=== PATIENT | male | born 1965 | race Caucasian/White ===

== ENCOUNTER → 2016-10-29 | Emergency (ER) | payer BC, OTHER ==
[~2016-10-29] VITALS: Ht 180.3 cm; Wt 81.6 kg
[~2016-10-29] MED LIST: /TAMS4CA OR; ADACEL/BOOSTRIX VACCINE (DIPHTH/PERTUSS/ACELL/TETANUS)0.5ML SYR (90715) IM ONE; AVOD0.5C PO; BACI500O8 TOP; BACITRACIN OINT 30GM TOP ONE; HYOS0.378 OR; OXYCODONE/APAP 5MG/325MG(BULK FOR ED) 1 TABLET PO ONE; PERC5TAB6 PO; PERCOCET 5MG/325MG TAB PO ONE; POLY33502 PO; POLYSPORIN TOPICAL OINTMENT 15GM As Ordered ONE; PRIL40CA OR; PROSTATE MEDS PO
[2016-10-29 20:41] VITALS: BP 172/107
== END | disposition home or self-care (01) ==
LOC: M ED 23:20
DX: T25.221A Burn of second degree of right foot, initial encounter (principal); T23.202A Burn of second degree of left hand, unspecified site, initial encounter; T23.291A Burn of second degree of multiple sites of right wrist and hand, initial encounter; T31.0 Burns involving less than 10% of body surface; X19.XXXA Contact with other heat and hot substances, initial encounter; Y92.9 Unspecified place or not applicable; Y93.89 Activity, other specified; Y99.9 Unspecified external cause status

== ENCOUNTER → 2017-01-13 | Outpatient (CLI) | payer BC, OTHER ==
[~2017-01-13] MED LIST changes: -ADACEL/BOOSTRIX VACCINE (DIPHTH/PERTUSS/ACELL/TETANUS)0.5ML SYR (90715) IM ONE; -BACITRACIN OINT 30GM TOP ONE; -OXYCODONE/APAP 5MG/325MG(BULK FOR ED) 1 TABLET PO ONE; +PERC5TAB12 PO; -PERC5TAB6 PO; -PERCOCET 5MG/325MG TAB PO ONE; -POLYSPORIN TOPICAL OINTMENT 15GM As Ordered ONE
[2017-01-13 21:35] LABS: BASO % 0.9 % (0.0-1.0); EOS # 0.2 K/mm3 (0.0-0.50); LYMPH # 1.8 K/mm3 (1.5-4.5); LYMPH % 31.1 % (24.0-44.0); MEAN CORPUSCULAR HGB CONC 33.4 g/dl (32.0-36.5); MEAN CORPUSCULAR VOLUME 92.8 fl (80.0-96.0); MONO # 0.4 K/mm3 (0.0-0.8); MONO % 6.6 % (0.0-5.0); NEUTROPHILS % 56.5 % (36.0-66.0); RED CELL DISTRIBUTION WIDTH 13.4 % (11.5-14.5); WHITE BLOOD COUNT 5.3 K/mm3 (4.0-10.0)
[2017-01-13 22:17] LABS: ALBUMIN 3.9 GM/DL (3.2-5.2); ALKALINE PHOSPHATASE 68 U/L (45-117); ALT/SGPT 22 U/L (12-78); ANION GAP 7 MEQ/L (8-16); AST/SGOT 11 U/L (15-37); BILIRUBIN,TOTAL 0.3 MG/DL (0.2-1.0); BLOOD UREA NITROGEN 19 MG/DL (7-18); CALCIUM LEVEL 8.1 MG/DL (8.5-10.1); CARBON DIOXIDE LEVEL 29 MEQ/L (21-32); CHLORIDE LEVEL 107 MEQ/L (98-107); CREATININE FOR GFR 0.95 MG/DL (0.70-1.30); GLOMERULAR FILTRATION RATE > 60.0 (>56); GLUCOSE, FASTING 128 MG/DL (70-105); POTASSIUM SERUM 4.4 MEQ/L (3.5-5.1); SODIUM LEVEL 143 MEQ/L (136-145); TOTAL PROTEIN 6.9 GM/DL (6.4-8.2)
== END ==
LOC: M LRY 10:36
PROVIDERS: ATTEND Family Medicine
DX: R10.9 Unspecified abdominal pain (principal); M46.96 Unspecified inflammatory spondylopathy, lumbar region; M16.10 Unilateral primary osteoarthritis, unspecified hip; N39.0 Urinary tract infection, site not specified

== ENCOUNTER → 2017-10-30 | Outpatient (REF) | payer OTHER ==
[2017-10-30 11:46] LABS: BASO # 0.1 10^3/uL (0.0-0.2); BASO % 0.9 % (0.0-1.0); EOS # 0.2 10^3/uL (0.0-0.50); EOS % 3.7 % (0.0-3.0); HEMATOCRIT 44.2 % (42.0-52.0); HEMOGLOBIN 15.1 g/dl (13.5-17.5); IMMATURE GRANULOCYTE % 0.2 % (0-3.0); LYMPH # 2.6 10^3/uL (1.5-4.5); LYMPH % 44.7 % (24.0-44.0); MEAN CORPUSCULAR HEMOGLOBIN 30.4 pg (27.0-33.0); MEAN CORPUSCULAR HGB CONC 34.2 g/dl (32.0-36.5); MEAN CORPUSCULAR VOLUME 88.9 fl (80.0-96.0); MONO # 0.6 10^3/uL (0.0-0.8); MONO % 9.8 % (0.0-5.0); NEUTROPHILS # 2.3 10^3/uL (1.8-7.7); NEUTROPHILS % 40.7 % (36.0-66.0); PLATELET COUNT, AUTOMATED 241 10^3/uL (150-450); RED BLOOD COUNT 4.97 10^6/uL (4.30-6.10); WHITE BLOOD COUNT 5.7 10^3/uL (4.0-10.0)
[2017-10-30 13:01] LABS: ALBUMIN 4.1 GM/DL (3.2-5.2); ALBUMIN/GLOBULIN RATIO 1.17 (1.00-1.93); ALKALINE PHOSPHATASE 69 U/L (45-117); ALT/SGPT 15 U/L (12-78); ANION GAP 6 MEQ/L (8-16); AST/SGOT 11 U/L (7-37); BILIRUBIN,TOTAL 0.8 MG/DL (0.2-1.0); BLOOD UREA NITROGEN 15 MG/DL (7-18); CARBON DIOXIDE LEVEL 30 MEQ/L (21-32); CHLORIDE LEVEL 105 MEQ/L (98-107); CHOLESTEROL LEVEL 224 MG/DL (<200); CHOLESTEROL RISK RATIO 5.463 (<5); CREATININE FOR GFR 0.95 MG/DL (0.70-1.30); FREE T4 1.19 NG/DL (0.76-1.46); GLOMERULAR FILTRATION RATE > 60.0 (>56); GLUCOSE, FASTING 97 MG/DL (70-100); HDL CHOLESTEROL 41 MG/DL (>40); LDL CHOLESTEROL 164.4 MG/DL (<100); NON-HDL-C 183 MG/DL; POTASSIUM SERUM 4.8 MEQ/L (3.5-5.1); PSA SCREENING 1.86 NG/ML (< 4.0); SODIUM LEVEL 141 MEQ/L (136-145); THYROID STIMULATING HORMONE 0.872 uIU/ML (0.358-3.740); TOTAL PROTEIN 7.6 GM/DL (6.4-8.2); TRIGLYCERIDES LEVEL 93 MG/DL (<150)
== END ==
LOC: M SFHCPLAZ 09:40 → M LRY 09:53
DX: R55 Syncope and collapse (principal); Z13.220 Encounter for screening for lipoid disorders; Z12.5 Encounter for screening for malignant neoplasm of prostate; F32.9 Major depressive disorder, single episode, unspecified

== ENCOUNTER → 2017-10-30 | Outpatient (CLI) | payer BC, OTHER | LOC: M LRY 09:49 | DX: M54.2 Cervicalgia (principal) ==

== ENCOUNTER → 2017-12-31 | Outpatient (REF) | payer OTHER ==
[2017-12-31 11:59] LABS: BASO % 0.5 % (0.0-1.0); EOS # 0.1 10^3/uL (0.0-0.50); EOS % 1.3 % (0.0-3.0); HEMATOCRIT 46.3 % (42.0-52.0); HEMOGLOBIN 15.7 g/dl (13.5-17.5); IMMATURE GRANULOCYTE % 0.2 % (0-3.0); MEAN CORPUSCULAR HEMOGLOBIN 30.5 pg (27.0-33.0); MEAN CORPUSCULAR HGB CONC 33.9 g/dl (32.0-36.5); MEAN CORPUSCULAR VOLUME 89.9 fl (80.0-96.0); MONO # 0.5 10^3/uL (0.0-0.8); MONO % 8.8 % (0.0-5.0); NEUTROPHILS % 54.2 % (36.0-66.0); PLATELET COUNT, AUTOMATED 244 10^3/uL (150-450); RED BLOOD COUNT 5.15 10^6/uL (4.30-6.10); RED CELL DISTRIBUTION WIDTH 13.4 % (11.5-14.5); WHITE BLOOD COUNT 5.6 10^3/uL (4.0-10.0)
[2017-12-31 12:12] LABS: D-DIMER QUANT < 270.0 ng/ml (<500)
[2017-12-31 12:21] LABS: LIPASE 528 U/L (73-393)
[2017-12-31 12:21] LABS: AMYLASE 129 U/L (25-115)
[2017-12-31 12:28] LABS: ALBUMIN 4.3 GM/DL (3.2-5.2); ALBUMIN/GLOBULIN RATIO 1.16 (1.00-1.93); ALKALINE PHOSPHATASE 81 U/L (45-117); ALT/SGPT 21 U/L (12-78); ANION GAP 6 MEQ/L (8-16); AST/SGOT 10 U/L (7-37); BILIRUBIN,TOTAL 0.7 MG/DL (0.2-1.0); BLOOD UREA NITROGEN 14 MG/DL (7-18); CALCIUM LEVEL 9.1 MG/DL (8.5-10.1); CARBON DIOXIDE LEVEL 26 MEQ/L (21-32); CHLORIDE LEVEL 107 MEQ/L (98-107); CREATININE FOR GFR 0.94 MG/DL (0.70-1.30); GLOMERULAR FILTRATION RATE > 60.0 (>56); GLUCOSE, FASTING 112 MG/DL (70-100); POTASSIUM SERUM 4.3 MEQ/L (3.5-5.1); SODIUM LEVEL 139 MEQ/L (136-145); TROPONIN I < 0.02 NG/ML (< 0.10)
== END ==
LOC: M SFHCLERA 10:50
DX: R07.9 Chest pain, unspecified (principal); R10.30 Lower abdominal pain, unspecified

== ENCOUNTER → 2017-12-31 | Outpatient (CLI) | payer BC, OTHER | LOC: M LRY 10:59 | DX: R10.30 Lower abdominal pain, unspecified (principal) | CPT/HCPCS: 71046 ==

== ENCOUNTER → 2020-08-14 | Outpatient (REF) | payer OTHER ==
[~2020-08-14] MED LIST changes: -/TAMS4CA OR; +FLOM0.4C39 OR
[2020-08-14 10:16] LABS: BASO # 0.1 10^3/uL (0.0-0.2); EOS # 0.2 10^3/uL (0.0-0.5); EOS % 3.4 % (0.0-3.0); HEMATOCRIT 45.7 % (42.0-52.0); HEMOGLOBIN 14.7 g/dl (13.5-17.5); LYMPH # 2.6 10^3/uL (1.5-5.0); LYMPH % 42.7 % (24.0-44.0); MEAN CORPUSCULAR HEMOGLOBIN 28.9 pg (27.0-33.0); MEAN CORPUSCULAR HGB CONC 32.2 g/dl (32.0-36.5); MONO # 0.6 10^3/uL (0.0-0.8); MONO % 9.4 % (2.0-8.0); NEUTROPHILS # 2.6 10^3/uL (1.5-8.5); NEUTROPHILS % 43.3 % (36.0-66.0); PLATELET COUNT, AUTOMATED 238 10^3/uL (150-450); RED BLOOD COUNT 5.08 10^6/uL (4.30-6.10); WHITE BLOOD COUNT 6.1 10^3/uL (4.0-10.0)
[2020-08-14 11:34] LABS: ALBUMIN 3.9 GM/DL (3.2-5.2); ALT/SGPT 12 U/L (12-78); BILIRUBIN,TOTAL 0.4 MG/DL (0.2-1.0); BLOOD UREA NITROGEN 17 MG/DL (7-18); CALCIUM LEVEL 9.5 MG/DL (8.5-10.1); CARBON DIOXIDE LEVEL 28 MEQ/L (21-32); CHLORIDE LEVEL 105 MEQ/L (98-107); CHOLESTEROL LEVEL 257 MG/DL (<200); CHOLESTEROL RISK RATIO 6.268 (<5); CREATININE FOR GFR 1.03 MG/DL (0.70-1.30); FREE T4 0.98 NG/DL (0.76-1.46); GLOMERULAR FILTRATION RATE > 60.0 (>56); GLUCOSE, FASTING 96 MG/DL (70-100); HDL CHOLESTEROL 41 MG/DL (>40); LDL CHOLESTEROL 194 MG/DL (<100); NON-HDL-C 216 MG/DL; POTASSIUM SERUM 4.5 MEQ/L (3.5-5.1); SODIUM LEVEL 138 MEQ/L (136-145); TOTAL PROTEIN 7.2 GM/DL (6.4-8.2); TRIGLYCERIDES LEVEL 109 MG/DL (<150)
== END ==
LOC: M SFHCPLAZ 08:09
PROVIDERS: ATTEND Physician Assistant Medical
DX: Z12.5 Encounter for screening for malignant neoplasm of prostate (principal); E78.00 Pure hypercholesterolemia, unspecified; R00.1 Bradycardia, unspecified

== ENCOUNTER → 2020-08-15 | Outpatient (CLI) | payer BC, OTHER ==
--- NOTE | 2020-08-15 12:24 | REPPI ---
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 COMPARISON: Right hip dated 01/14/2008 TECHNIQUE: AP view of the pelvis with neutral and frog-lateral views of the right and left hip. FINDINGS: Left hemipelvis is essentially normal and age-appropriate with minimal increased sclerosis to the acetabular roof and subtle joint space narrowing. Right hip demonstrates previous resection of the femoral head with subsequent replacement. Orthopedic hardware is normal in position and appearance. 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 There is no evidence for acute fracture or dislocation. IMPRESSION: No obvious significant acute process appreciated. Mild age-related changes to the left hip. <Electronically signed by Francisco Daley > 08/15/20 [id number]
== END ==
LOC: M PLAIMG 11:37
PROVIDERS: ATTEND Physician Assistant Medical
DX: Q65.89 Other specified congenital deformities of hip (principal)

== ENCOUNTER → 2020-09-07 | Outpatient (CLI) | payer SELFPAY ==
--- NOTE | 2020-09-07 11:23 | REPPI ---
INDICATION: SCIATICA. COMPARISON: 12/05/2009. TECHNIQUE: There are five views. FINDINGS: There is mild scoliosis convex left at L3-L4-L5, not present previously, possibly positional. Vertebral body heights and alignment are normal and unchanged. There are small anterior osteophytes at L3-L4 and L5 without significant disc space narrowing compatible with mild degenerative disc disease, not significantly changed. There is facet hypertrophy at L4-5 and L5-S1 bilaterally compatible with osteoarthritis, unchanged. Sacroiliac articulations are unremarkable. Unilateral L5 spondylolysis on the left, similar to the prior study. No spondylolisthesis. There is a total right hip arthroplasty, unchanged. IMPRESSION: Mild multilevel degenerative disc disease, unchanged. Facet osteoarthritis, unchanged. Unilateral L5 spondylolysis on the left without spondylolisthesis. Mild scoliosis as described, not present previously. <Electronically signed by Ramon Ware > 09/07/20 1998
== END ==
LOC: M PLAIMG 10:37
PROVIDERS: ATTEND Physician Assistant Medical
DX: M54.31 Sciatica, right side (principal); M25.48 Effusion, other site; M43.16 Spondylolisthesis, lumbar region

== ENCOUNTER 2022-09-04 08:03 | Emergency (ER) | payer SELFPAY ==
[~2022-09-04] VITALS: Ht 180.3 cm; Wt 86.2 kg
[2022-09-04 08:03] VITALS: BP 156/81
[2022-09-04] MEDS ORDERED: IBUPROFEN 600MG TAB PO ONE (10:20)
== END 2022-09-04 11:53 | disposition home or self-care (01) ==
LOC: M ED 08:03
DX: K02.9 Dental caries, unspecified (principal)

== ENCOUNTER 2022-09-12 14:48 | Emergency (ER) | payer SELFPAY ==
[~2022-09-12] VITALS: Ht 180.3 cm; Wt 81.8 kg
[2022-09-12 14:49] VITALS: BP 139/85
[2022-09-12] MEDS ORDERED: AMOX875T2 PO (15:23)
[2022-09-12] MEDS ORDERED: ONDA4TAB6 PO (23:57)
== END 2022-09-12 15:48 | disposition home or self-care (01) ==
LOC: M ED 14:48
DX: K05.10 Chronic gingivitis, plaque induced (principal); K08.89 Other specified disorders of teeth and supporting structures; Z76.0 Encounter for issue of repeat prescription

== ENCOUNTER 2022-09-12 21:43 | Emergency (ER) | payer SELFPAY ==
[~2022-09-12 21:43] MED LIST changes: +AMOX875T2 PO
[2022-09-12] MEDS ORDERED: ONDANSETRON 4MG 2ML VIAL IV ONE (22:05)
[2022-09-12 22:22] LABS: BASO # 0.1 10^3/uL (0.0-0.2); BASO % 0.3 % (0.0-1.0); EOS # 0.1 10^3/uL (0.0-0.5); EOS % 0.7 % (0.0-3.0); HEMATOCRIT 46.5 % (42.0-52.0); HEMOGLOBIN 15.4 g/dl (13.5-17.5); LYMPH # 0.6 10^3/uL (1.5-5.0); LYMPH % 3.4 % (24.0-44.0); MEAN CORPUSCULAR HEMOGLOBIN 30.1 pg (27.0-33.0); MEAN CORPUSCULAR HGB CONC 33.1 g/dl (32.0-36.5); MEAN CORPUSCULAR VOLUME 90.8 fl (80.0-96.0); MONO # 0.7 10^3/uL (0.0-0.8); MONO % 3.9 % (2.0-8.0); NEUTROPHILS % 91.2 % (36.0-66.0); PLATELET COUNT, AUTOMATED 305 10^3/uL (150-450); RED BLOOD COUNT 5.12 10^6/uL (4.30-6.10); WHITE BLOOD COUNT 17.5 10^3/uL (4.0-10.0)
[2022-09-12 23:00] VITALS: BP 125/80
[2022-09-12 23:03] LABS: CK-MB VALUE MASS < 1.0 NG/ML (<3.6)
[2022-09-12 23:07] LABS: ALBUMIN 4.2 G/DL (3.2-5.2); ALKALINE PHOSPHATASE 84 U/L (46-116); ALT/SGPT 24 U/L (7.0-40); AST/SGOT 31 U/L (<34); BILIRUBIN,DIRECT 0.1 MG/DL (<0.4); BILIRUBIN,TOTAL 0.4 MG/DL (0.3-1.2); BLOOD UREA NITROGEN 19 MG/DL (9-23); CALCIUM LEVEL 9.2 MG/DL (8.5-10.1); CARBON DIOXIDE LEVEL 22 MMOL/L (20-31); CPK CREATINE PHOSPHOKINASE 164 U/L (46-171); CREATININE FOR GFR 1.02 MG/DL (0.70-1.30); GLOMERULAR FILTRATION RATE > 60.0 (>56); GLUCOSE, FASTING 101 MG/DL (60-100); LIPASE 44 U/L (12-53); TOTAL PROTEIN 7.7 G/DL (5.7-8.2)
[2022-09-12 23:27] LABS: CHLORIDE LEVEL 107 MMOL/L (98-107); POTASSIUM SERUM 4.3 MMOL/L (3.5-5.1); SODIUM LEVEL 143 MMOL/L (136-145)
[2022-09-12 23:39] LABS: CK-MB VALUE MASS < 1.0 NG/ML (<3.6)
[2022-09-12 23:46] LABS: CPK CREATINE PHOSPHOKINASE 136 U/L (46-171); MB/CK RELATIVE INDEX 0.73 (< OR =4)
[2022-09-12] MEDS ORDERED: ONDA4TAB6 PO (23:57)
== END 2022-09-13 00:11 | disposition home or self-care (01) ==
LOC: M ED 21:43
DX: R11.10 Vomiting, unspecified (principal); K58.1 Irritable bowel syndrome with constipation; Z86.19 Personal history of other infectious and parasitic diseases; M51.36 Other intervertebral disc degeneration, lumbar region
CPT/HCPCS: 71046; 74176; 80048; 80076; 82550; 82553; 83690; 84484; 85025; 93005; 93041; 94760; 96374; 99285; J2405

== ENCOUNTER 2022-11-16 08:45 | Emergency (ER) | payer SELFPAY ==
[~2022-11-16] VITALS: Ht 180.3 cm; Wt 81.1 kg
[~2022-11-16 08:45] MED LIST changes: +ONDA4TAB6 PO
[2022-11-16 10:19] LABS: BASO % 0.3 % (0.0-1.0); EOS # 0.1 10^3/uL (0.0-0.5); EOS % 0.6 % (0.0-3.0); HEMATOCRIT 42.8 % (42.0-52.0); HEMOGLOBIN 14.3 g/dl (13.5-17.5); LYMPH # 1.2 10^3/uL (1.5-5.0); MEAN CORPUSCULAR HEMOGLOBIN 30.4 pg (27.0-33.0); MEAN CORPUSCULAR HGB CONC 33.4 g/dl (32.0-36.5); MEAN CORPUSCULAR VOLUME 91.1 fl (80.0-96.0); MONO # 0.5 10^3/uL (0.0-0.8); MONO % 5.3 % (2.0-8.0); NEUTROPHILS # 7.3 10^3/uL (1.5-8.5); NEUTROPHILS % 80.6 % (36.0-66.0); PLATELET COUNT, AUTOMATED 215 10^3/uL (150-450); WHITE BLOOD COUNT 9.1 10^3/uL (4.0-10.0)
[2022-11-16 10:50] LABS: CK-MB VALUE MASS < 1.0 NG/ML (<3.6); LIPASE 103 U/L (12-53)
[2022-11-16 10:53] LABS: ALKALINE PHOSPHATASE 78 U/L (46-116); ALT/SGPT 14 U/L (7.0-40); AST/SGOT 17 U/L (<34); BILIRUBIN,DIRECT < 0.1 MG/DL (<0.4); BILIRUBIN,TOTAL 0.3 MG/DL (0.3-1.2); BLOOD UREA NITROGEN 14 MG/DL (9-23); CALCIUM LEVEL 9.1 MG/DL (8.5-10.1); CARBON DIOXIDE LEVEL 25 MMOL/L (20-31); CHLORIDE LEVEL 109 MMOL/L (98-107); GLOMERULAR FILTRATION RATE > 60.0 (>56); GLUCOSE, FASTING 107 MG/DL (60-100); POTASSIUM SERUM 4.3 MMOL/L (3.5-5.1); SODIUM LEVEL 139 MMOL/L (136-145); TOTAL PROTEIN 6.7 G/DL (5.7-8.2)
[2022-11-16 11:06] LABS: CPK CREATINE PHOSPHOKINASE 77 U/L (46-171); MB/CK RELATIVE INDEX 1.29 (< OR =4)
[2022-11-16] MEDS ORDERED: ISOVUE-370 76% 100ML VIAL As Ordered ONE (11:27)
[2022-11-16 12:36] LABS: C REACTIVE PROTEIN QUANTITATIV < 0.40 MG/DL (<1.0)
[2022-11-16 12:40] LABS: ERYTHROCYTE SEDIMENTATION RATE 20 mm/hr (0-20)
[2022-11-16 12:51] LABS: BARBITURATES URINE REFLEX NEGATIVE (NEGATIVE); BENZODIAZEPINES URINE REFLEX NEGATIVE (NEGATIVE); COCAINE METABOLITE URINE REFLE NEGATIVE (NEGATIVE); METHADONE URINE REFLEX NEGATIVE (NEGATIVE); OPIATES URINE REFLEX NEGATIVE (NEGATIVE); PHENCYCLIDINE URINE REFLEX NEGATIVE (NEGATIVE)
[2022-11-16 12:52] LABS: AMPHETAMINES URINE REFLEX NEGATIVE (NEGATIVE)
[2022-11-16 12:53] LABS: CANNABINOIDS URINE REFLEX PENDING CONFIRMATION (NEGATIVE)
[2022-11-16 13:00] LABS: ETHYL ALCOHOL (ETHANOL) < 0.003 % (0.000-0.010)
[2022-11-16 13:02] LABS: ACETAMINOPHEN LEVEL < 2.0 UG/ML (10.0-20.0); SALICYLATE LEVEL < 3.0 MG/DL (<30)
[2022-11-16] MEDS ORDERED: HOME MED LIST COMPLETE! XX SCH (13:15)
[2022-11-16 14:34] VITALS: BP 154/86; TEMP 96.4; O2SAT 99
[2022-11-16] MEDS ORDERED: ONDANSETRON 4MG ORAL DISINTEGRATING TAB PO ONE (17:10)
[2022-11-20 11:08] LABS: Cannabinoid Positive (.); Carboxy THC Conf, MS, UR >300 ng/mL (Cutoff=10)
== END 2022-11-16 19:10 | disposition home or self-care (01) ==
LOC: M ED 08:45 → EDBD 08:45 → M ED 19:10
DX: R10.9 Unspecified abdominal pain (principal); M25.551 Pain in right hip; M71.21 Synovial cyst of popliteal space [Baker], right knee; R00.1 Bradycardia, unspecified; I25.2 Old myocardial infarction; F12.10 Cannabis abuse, uncomplicated; F17.200 Nicotine dependence, unspecified, uncomplicated; Z96.649 Presence of unspecified artificial hip joint
CPT/HCPCS: 36415; 71046; 73700; 74177; 80048; 80076; 80143; 80307; 81000; 81015; 82077; 82550; 82553; 83690; 83880; 84484; 85025; 85652; 86140; 87635; 93005; 93971; 99285; G0480; Q9967

== ENCOUNTER 2024-05-09 11:33 | Emergency (ER) | payer SELFPAY ==
[~2024-05-09] VITALS: Ht 180.3 cm; Wt 81.8 kg
[~2024-05-09 11:33] MED LIST changes: +ONDA-282 PO; -ONDA4TAB6 PO
[2024-05-09 13:06] LABS: HEMATOCRIT 43.4 % (42.0-52.0); HEMOGLOBIN 14.7 g/dl (13.5-17.5); MEAN CORPUSCULAR HEMOGLOBIN 30.8 pg (27.0-33.0); MEAN CORPUSCULAR HGB CONC 33.9 g/dl (32.0-36.5); PLATELET COUNT, AUTOMATED 255 10^3/uL (150-450); RED BLOOD COUNT 4.77 10^6/uL (4.30-6.10); WHITE BLOOD COUNT 7.6 10^3/uL (4.0-10.0)
[2024-05-09 13:26] LABS: BLOOD UREA NITROGEN 17 MG/DL (9-23); CALCIUM LEVEL 9.7 MG/DL (8.3-10.6); CARBON DIOXIDE LEVEL 25 MMOL/L (20-31); CHLORIDE LEVEL 106 MMOL/L (98-107); CREATININE FOR GFR 0.86 MG/DL (0.70-1.30); GLOMERULAR FILTRATION RATE > 60.0 (>49); GLUCOSE, FASTING 110 MG/DL (74-106); POTASSIUM SERUM 4.1 MMOL/L (3.5-5.1); SODIUM LEVEL 139 MMOL/L (136-145)
[2024-05-09 13:34] VITALS: BP 147/82; TEMP 98; O2SAT 96
[2024-05-09 13:35] LABS: AMPHETAMINES LEVEL URINE NEGATIVE (NEGATIVE); BARBITURATES URINE NEGATIVE (NEGATIVE); BENZODIAZEPINES URINE NEGATIVE (NEGATIVE); COCAINE METABOLITE URINE NEGATIVE (NEGATIVE); METHADONE URINE NEGATIVE (NEGATIVE); OPIATES URINE NEGATIVE (NEGATIVE); PHENCYCLIDINE URINE NEGATIVE (NEGATIVE)
[2024-05-09 13:37] LABS: CANNABINOIDS URINE POSITIVE (NEGATIVE)
== END 2024-05-09 13:36 | disposition home or self-care (01) ==
LOC: M ED 11:33
DX: F39 Unspecified mood [affective] disorder (principal); F12.10 Cannabis abuse, uncomplicated